=== PATIENT | female | born 1955 | race Caucasian/White ===

== ENCOUNTER 2021-09-25 13:30 | Emergency (ER) | payer OTHER ==
[~2021-09-25] VITALS: Ht 152.4 cm; Wt 86.2 kg
[2021-09-25 13:45] VITALS: BP 140/76
--- NOTE | 2021-09-25 13:55 | NUR ---
Pt placed to bed #2 coming from home ambulatory with steady gait. Pt c/o abdominal pain radiating to her left upper chest. As well as accompanied with diarrhea. Pt is A&Ox4. Skin intact. VSS. No n/v. No sob. Bed in lowest position and connected to media monitor. Allergic to Penicillin and Actose. Hx of Asthma, HTN, and DM. 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
--- NOTE | 2021-09-25 14:12 | NUR ---
#20g IV placed on right AC using aseptic technique. No infiltration noted. Skin intact. Blood drawn and flushed with 10cc. Saline lock.
--- NOTE | 2021-09-25 14:14 | NUR ---
Dr. Ludwig at bedside examining pt.
[2021-09-25] MEDS ORDERED: KETOROLAC 15 MG/ML VIAL IVP ONE (14:20)
--- NOTE | 2021-09-25 14:23 | NUR ---
EKG being done at bedside.
[2021-09-25 14:32] LABS: BASOPHILS % (AUTO) 0.3 % (0.0-2.0); EOSINOPHILS % (AUTO) 0.2 % (0.0-4.0); HEMATOCRIT 41.6 % (36-48); HEMOGLOBIN 13.9 g/dL (12.0-16.0); LYMPHOCYTES % (AUTO) 9.5 % (20.5-51.1); MEAN CORPUSCULAR HEMOGLOBIN 27 pg (27-31); MEAN CORPUSCULAR HGB CONC 33 g/dL (33-37); MONOCYTES # (AUTO) 0.8 K/uL (0.8-1.0); MONOCYTES % (AUTO) 7.2 % (1.7-9.3); NEUTROPHILS # (AUTO) 9.1 K/uL (1.8-7.7); NEUTROPHILS % (AUTO) 82.8 % (42.2-75.2); PLATELET COUNT (AUTO) 252 K/uL (140-450); RED BLOOD CELL COUNT(AUTO) 5.07 MIL/uL (4.20-5.40); RED CELL DISTRIBUTION WIDTH 13.9 % (11.6-13.7)
--- NOTE | 2021-09-25 14:42 | NUR ---
Spoke to of pt and updated him on pt's condition.
[2021-09-25 14:43] LABS: ALBUMIN 3.9 g/dL (3.4-5.0); ANION GAP 12.7 (8-16); CARBON DIOXIDE 26.8 mmol/L (21-32); CREATININE 0.8 mg/dL (0.6-1.3); POTASSIUM 3.5 mmol/L (3.5-5.1); TOTAL BILIRUBIN 0.5 mg/dL (0.0-1.0)
--- NOTE | 2021-09-25 14:45 | NUR ---
Chest X-Ray being done at bedside.
--- NOTE | 2021-09-25 14:50 | NUR ---
Pt to radiology via [facility] accompanied by durability technician.
--- NOTE | 2021-09-25 15:04 | NUR ---
Pt return from radiology and plaed back on label rewinder.
[2021-09-25] MEDS ORDERED: ACET-10509 PO (15:48)
[2021-09-25] MEDS ORDERED: ONDA-188 SL (15:48)
[2021-09-25] MEDS ORDERED: IMO2 PO (15:48)
--- NOTE | 2021-09-25 16:10 | NUR ---
Patient discharged with v/s stable. Written and verbal after care instructions given and explained. Patient verbalized understanding. Ambulatory with steady gait. All questions addressed prior to discharge. Advised to follow up with PMD.
[2021-09-25 16:24] VITALS: BP 148/76
== END 2021-09-25 16:24 | disposition home or self-care (01) ==
LOC: MED 13:30
DX: R10.13 Epigastric pain (principal); R19.7 Diarrhea, unspecified; R06.02 Shortness of breath; I10 Essential (primary) hypertension; E11.9 Type 2 diabetes mellitus without complications; Z79.899 Other long term (current) drug therapy; Z79.84 Long term (current) use of oral hypoglycemic drugs; Z79.4 Long term (current) use of insulin; Z88.0 Allergy status to penicillin
CPT/HCPCS: 36415; 71045; 74176; 80053; 81002; 83690; 85025; 93005; 96374; 99285; J1885; Q0092